=== PATIENT | female | born 1950 | race Caucasian/White ===

== ENCOUNTER 2024-02-10 12:16 | Emergency (ER) | payer MEDICARE, SELFPAY ==
[2024-02-10] VITALS (11 sets, daily range): BP systolic 163–207; BP diastolic 74–98; PULSE 75–96; RESP 17–24; O2SAT 94–99
--- NOTE | ~2024-02-10 | XR_ITS ---
Clinical Indication: Shortness of breath PA and lateral views of the chest: Comparison: None Findings: The lungs are clear, without evidence of focal consolidation or pleural effusion. Cardiome diastinal silhouette is within normal limits. Bones and soft tissues are unremarkable. Impression: Normal chest. Reviewed, dictated and finalized at [facility]. Impression: Normal chest.
--- NOTE | ~2024-02-10 | CT_ITS ---
EXAMINATION: CT brain wo con DATE: 02/10/2024 13:37 INDICATION: Headache and dizziness TECHNIQUE: Computed tomography (CT) of the head was performed without intravenous contrast. Sagittal and coronal reconstructions were performed. The mA was adjusted according to patient size. Iterative reconstruction technique was employed. The dose-length product was 605.33 mGy-cm. COMPARISON: None FINDINGS: No acute intracranial hemorrhage, acute infarction or abnormal extra axial fluid collection. Ventricl es are normal and symmetric. No mass/mass effect. The orbits, paranasal sinuses and mastoid air cells are normal. IMPRESSION: 1. No acute intracranial process. Reviewed, dictated and finalized at location A.
--- NOTE | 2024-02-10 12:38 | ECG_ITS ---
SEE SCANNED COPY FOR CONFIRMED REPORT MTDD
--- NOTE | 2024-02-10 13:03 | ED.GENADULT ---
HPI - General Adult General Chief complaint: Headache Stated complaint: headache, sob Time Seen by Provider: 02/10/24 12:49 History of Present Illness HPI narrative: 73-year-old female presenting to the emergency department for evaluation headache over the last 24 hours and worsening left ear pain. Patient reports on Thursday she felt that she may have over exerted herself and become dehydrated while she was working on the yd. Patient states that she did have some lightheaded and dizziness and some increased fatigue. Patient reports today she was doing her chair yoga and after completing the yoga she had onset of left ear pain that radiates to her left jaw. Patient denies any current chest pain or shortness of breath. Related Data Allergies Allergy/AdvReac Type Severity Reaction Status Date / Time codeine Allergy Intermediate rash and Verified 09/19/15 14:21 eyes swell shut Sulfa (Sulfonamide Allergy Intermediate rash Verified 09/19/15 14:22 Antibiotics) tamsulosin Allergy Hives Verified 02/10/24 13:24 ciprofloxacin AdvReac Severe tendon tore Verified 09/19/15 14:21 Review of Systems Review of Systems: All systems reviewed & are unremarkable except as noted in HPI and below Exam Narrative: APPEARANCE: Well appearing, no pain, no distress, well-nourished. HEAD: normocephalic, atraumatic. EYES: PERRLA/EOMI, conjunctivae clear. NOSE: Normal no drainage EARS: Left earache with normal TM THROAT: Pharynx clear, no exudate. NECK: Supple. No adenopathy, no masses. RESPIRATORY: Airway patent, respirations nonlabored. Clear to auscultation bilaterally, no rales, rhonchi, wheezing. CARDIOVASCULAR: Regular rate and rhythm without murmurs rubs or gallops. ABDOMINAL: Soft, nontender, nondistended, normal bowel sounds MUSCULOSKELETAL: Moves all extremities. Strength/ROM intact, No edema, No calf tenderness. NEURO: Alert. Cranial nerves II through XII intact. Grossly intact SKIN: Warm, dry. Normal Color Course Vital Signs Vital signs: Vital Signs Pulse Rate 96 02/10/24 12:34 Respiratory Rate 18 02/10/24 12:34 Blood Pressure 207/87 H 02/10/24 12:34 Pulse Oximetry 98 02/10/24 12:34 Pulse Rate 84 02/10/24 18:12 Respiratory Rate 19 02/10/24 18:12 Blood Pressure 183/85 H 02/10/24 18:12 Pulse Oximetry 99 02/10/24 18:12 Oxygen Delivery Room Air 02/10/24 12:35 Medical Decision Making [facility] Narrative Medical decision making narrative: 73-year-old female presents emergency department for evaluation of left ear pain. TM shows no evidence of erythema and no concern for current otitis media. Patient is afebrile with no leukocytosis and a stable hemoglobin, patient had negative serial troponins. Patient blood pressure did spontaneously improve in the emergency department without treatment. Patient does not currently take medications for her blood pressure. Chest x-ray showed normal chest and head CT showed no acute abnormality. Patient was comfortable the plan for discharge and close follow-up. Differential Diagnosis Differential Diagnosis: Sinusitis, seasonal allergies, otitis media, ACS, hypertensive urgency Vital Signs Vital Signs: Vital Signs Pulse Rate 96 02/10/24 12:34 Respiratory Rate 18 02/10/24 12:34 Blood Pressure 207/87 H 02/10/24 12:34 Pulse Oximetry 98 02/10/24 12:34 Pulse Rate 84 02/10/24 18:12 Respiratory Rate 19 02/10/24 18:12 Blood Pressure 183/85 H 02/10/24 18:12 Pulse Oximetry 99 02/10/24 18:12 Oxygen Delivery Room Air 02/10/24 12:35 Lab Data Lab results reviewed: Yes I reviewed the patient's lab results. 02/10/24 13:29 02/10/24 14:19 Labs: Lab Results 02/10/24 02/10/24 02/10/24 Range/Units 13:29 13:30 14:19 WBC 8.7 (4.5-10.0) K/mm3 RBC 4.54 (4.2-5.4) M/mm3 Hgb 14.3 (12.0-15.0) g/dL Hct 41.7 (37.0-47.0) % MCV 91.9 (80-100) fl MCH 31.5 (26-34) pg MCHC
[2024-02-10 13:38] LABS: Basophils Percent Auto 0.5 % (0.2-1.2); Eosinophils Absolute Auto 0.1 K/mm3 (0-0.3); Eosinophils Percent Auto 0.8 % (0-4.4); Hematocrit 41.7 % (37.0-47.0); Hemoglobin 14.3 g/dL (12.0-15.0); Immature Granulocyte Absolute 0.02 K/mm3 (0.00-0.031); Immature Granulocyte Percent A 0.2 % (0-0.5); Lymphocytes Absolute Auto 1.78 K/mm3 (0.9-3.2); Lymphocytes Percent Auto 20.4 % (18.3-44.2); Mean Corpuscular HGB Conc 34.3 g/dl (32-36); Mean Corpuscular Hemoglobin 31.5 pg (26-34); Mean Corpuscular Volume 91.9 fl (80-100); Mean Platelet Volume 11.3 fl (7.4-10.4); Monocytes Absolute Auto 0.6 K/mm3 (0.1-0.6); Monocytes Percent Auto 6.8 % (2.6-8.5); Neutrophils Absolute Auto 6.2 K/mm3 (1.3-6.7); Neutrophils Percent Auto 71.3 % (45.5-73.1); Platelet Count Result 197 k/mm3 (150-375); Red Blood Count 4.54 M/mm3 (4.2-5.4); Red Cell Distribution Width 12.4 % (11.5-14.5); White Blood Count 8.7 K/mm3 (4.5-10.0)
[2024-02-10 13:57] LABS: Giant Platelets Present; Large Platelets Present; Platelet Clumps Present; Platelet Estimate Adequate (Adequate); Schistocytes None Seen
[2024-02-10 14:43] LABS: Alanine Aminotransferase 20 U/L (6-35); Albumin Level 3.7 g/dL (3.5-5.1); Alkaline Phosphatase 81 U/L (38-126); Anion Gap 7 mmol/L (4-12); Aspartate Amino Transferase 26 U/L (14-36); Bilirubin,Total 0.6 mg/dL (0.2-1.3); Blood Urea Nitrogen 18 mg/dL (7-17); Calcium 9.1 mg/dL (8.4-10.2); Carbon Dioxide 18 mmol/L (22-30); Chloride 109 mmol/L (98-107); Estimated CRCL calculation 111 ml/min; Estimated Glomerular Filt Rate > 60; Glucose 138 mg/dL (65-110); Lipase 78 U/L (23-300); Potassium 4.6 mmol/L (3.4-5.0); Sodium 134 mmol/L (137-145)
[2024-02-10 14:54] LABS: Troponin I < 0.012 ng/mL (0.000-0.034)
[2024-02-10 15:20] LABS: Prothrombin Time 13.6 Seconds (11.1-14.7)
[2024-02-10 15:21] LABS: Partial Thromboplastin Time 21.7 Seconds (22.3-36.8)
--- NOTE | 2024-02-10 17:20 | ECG_ITS ---
SEE SCANNED COPY FOR CONFIRMED REPORT MTDD
[2024-02-10 18:12] LABS: Troponin I < 0.012 ng/mL (0.000-0.034)
== END 2024-02-10 18:57 | disposition home or self-care (01) ==
PROVIDERS: Emergency Provider Emergency Medicine; PCP Family Medicine
DX: R51.9 Headache, unspecified (principal); H92.02 Otalgia, left ear; I10 Essential (primary) hypertension; R94.31 Abnormal electrocardiogram [ECG] [EKG]; I45.10 Unspecified right bundle-branch block
CPT/HCPCS: 36415; 70450; 71046; 80053; 83690; 84484; 85025; 85055; 85610; 85730; 93005; 99284